=== PATIENT | female | born 1985 | race Caucasian/White ===

== ENCOUNTER 2020-07-18 12:41 | Emergency (ER) | payer OTHER ==
[2020-07-18 12:50] VITALS: BP 133/84; PULSE 64; TEMP 97.8; BMI 26.6
[2020-07-18] MEDS ORDERED: MECLIZINE HCL 25 MG TABLET (FP) PO ONE (13:35)
[2020-07-18] MEDS ORDERED: MECLIZINE HCL 25 MG TABLET (FP) ONE (14:06)
[2020-07-18 14:36] LABS: BASO % 0.5 % (0-2.0); EOS % 3.7 % (0-4.5); HEMATOCRIT 38.4 % (32.4-45.2); HEMOGLOBIN 13.3 GM/dL (10.7-15.3); LYMPH % 27.8 % (8-40); MCHC 34.7 g/dl (32.0-36.0); MEAN CELL VOLUME 89.5 fl (80-96); MEAN PLT VOLUME 7.4 fl (7.5-11.1); MONO % 9.3 % (3.8-10.2); NEUT % 58.7 % (42.8-82.8); PLATELET COUNT 267 K/MM3 (134-434); WHITE BLOOD COUNT 6.1 K/mm3 (4.0-10.0)
[2020-07-18 14:59] LABS: ALBUMIN 4.2 g/dl (3.4-5.0); BLOOD UREA NITROGEN 11.4 mg/dL (7-18); CALCIUM 9.4 mg/dL (8.5-10.1)
[2020-07-18 15:02] LABS: CREATININE 0.7 mg/dL (0.55-1.3)
[2020-07-18 15:04] LABS: BILIRUBIN,TOTAL 0.5 mg/dL (0.2-1); TOT PROT 7.2 g/dl (6.4-8.2)
[2020-07-18] MEDS ORDERED: diazePAM 2 MG TABLET PO ONE (15:09)
[2020-07-18] MEDS ORDERED: diphenhydrAMINE HCL 25 MG CAPSULE (FP) PO ONE (15:09)
[2020-07-18] MEDS ORDERED: diazePAM 5 MG TABLET PO ONE (15:19)
[2020-07-18] MEDS ORDERED: diazePAM 5 MG TABLET ONE (15:23)
== END 2020-07-18 16:25 | disposition home or self-care (01) ==
LOC: JER 12:41
DX: R42 Dizziness and giddiness (principal)
CPT/HCPCS: 36415; 80053; 83735; 85025; 93005; 93010; 99284-25